=== PATIENT | male | born 1995 | race Caucasian/White ===

== ENCOUNTER 2021-02-23 15:32 | Emergency (ER) | payer SELFPAY ==
[2021-02-23 15:34] VITALS: BP 129/94; PULSE 79; RESP 18; TEMP 36.3; O2SAT 98; BMI 25.2
--- NOTE | 2021-02-23 16:14 | EDS_ITS ---
HPI History of Present Illness Chief Complaint: Bite Narrative Narrative: Patient presenting for evaluation secondary to a dog bite. Patient states that he was on the job, and 2 dogs in the neighborhood attacked him. He suffered bite wounds to the left thigh, right groin, and right buttock. Pain is mild. Patient denies any underlying history of immunosuppression easy bruising or bleeding. Patient states that he is unsure of his last tetanus shot. Review of systems otherwise negative. ROS ROS ED Constitutional Constitutional ED: Denies fever(s) Respiratory/Chest Respiratory/Chest: Denies cough or dyspnea Musculoskeletal Musculoskeletal: Denies myalgias Integumentary Reports Abrasions Neurologic Neurologic: Denies paresthesias or weakness Hematologic/Lymphatic Hematologic/Lymphatic: Denies easy bleeding or easy bruising Allergic/Immunologic Allergic/Immunologic ED: Denies urticaria PFSH PFSH Home Medications amoxicillin-pot clavulanate [Augmentin] 1 tab PO BID #10 tab 02/23/21 [Rx Last Taken Unknown] Allergy/AdvReac Type Severity Reaction Status Date / Time No Known Allergies Allergy Verified 02/23/21 15:33 Social History Smoking Status: Never smoker EXAM Physical Exam Const Vital Signs: 02/23/21 15:34 Temperature 97.4 F L Temperature Source Temporal Pulse Rate 79 Respiratory Rate 18 Blood Pressure 129/94 H Blood Pressure Mean 105 Pulse Ox 98 Oxygen Delivery Method Room Air Positive well nourished and well developed General Appearance ED: well developed and NAD HEENT normocephalic and atraumatic Eyes EOMs intact bilaterally Resp normal respiratory effort Cardio regular rate Extremity Extremity Narrative: Examination the patient's extremities show a abrasion over the patient's left thigh with some minimal surrounding bruising. There is a slightly deeper abrasion over the patient's right anterior groin with some surrounding bruising and a very superficial very minimal abrasion over the p atient's right buttock. Normal range of motion of the extremities normal distal pulses normal distal sensation. Neuro oriented x3 Sensorium / Orientation: alert MDM MDM MDM Narrative Medical decision making narrative: Patient presented secondary to a dog bite. His tetanus status is updated. The bites very fortunately are actually very superficial, and not require significant cleaning or irrigation. There are more abrasions. Patient was recommended on standard wound care. To be placed on prophylactic Augmentin for 5 days. Patient was discharged in stable condition. Discharge Plan Triage Chief Complaint: Bite ED Provider: Justus Prather Dx/Rx/DC Orders Clinical Impression: Dog bite Instructions: ED Dog Bite Prescriptions: New amoxicillin-pot clavulanate [Augmentin] 875-125 mg tablet 1 tab PO BID Qty: 10 RF: 0 Primary Care Provider: Rose Juarez Referrals: Rose Juarez MD [Primary Care Provider] - 3-5 Days if not improving Disposition Disposition: Home, Self Care
[2021-02-23] MEDS: Diphth,Pertuss(Acell),Tet Vac 0.5 ML Vial IM (16:26)
[2021-02-23 16:30] VITALS: BP 129/94; PULSE 79; RESP 18; TEMP 36.3; O2SAT 98
[2021-02-23 16:50] VITALS: RESP 16
--- NOTE | 2021-02-23 16:51 | ED.RN ---
REVIEWED D/C INSTRUCTIONS, FOLLOW UP CARE, PRESCRIPTION AND S/S THAT WOULD WARRANT A RETURN TO THE ED WITH PT. PT VERBALIZED AN UNDERSTANDING AND DENIES FURTHER QUESTIONS FOR THIS RN. PT SKIN P/W/D, RESP EVEN AND UNLABORED, PT A&O X 3, NO DISTRESS NOTED. PT AMBULATED OUT OF ED, GAIT STEADY.
== END 2021-02-23 16:56 | disposition home or self-care (01) ==
PROVIDERS: Emergency Provider Emergency Medicine; PCP Family Medicine
DX: S70.312A Abrasion, left thigh, initial encounter (principal); S30.811A Abrasion of abdominal wall, initial encounter; S30.810A Abrasion of lower back and pelvis, initial encounter; Z23 Encounter for immunization; W54.0XXA Bitten by dog, initial encounter; Y93.9 Activity, unspecified; Y92.9 Unspecified place or not applicable; Y99.9 Unspecified external cause status
CPT/HCPCS: 90471; 90715; 99283